=== PATIENT | female | born 1955 | race Caucasian/White ===

== ENCOUNTER 2021-03-24 20:37 | Inpatient (IN) | payer OTHER ==
[~2021-03-24] VITALS: Ht 165.1 cm; Wt 40.8 kg
[2021-03-24 20:43] VITALS: BP 100/54
[2021-03-24] MEDS ORDERED: MUCINEX600 MG PO (20:46)
[2021-03-24] MEDS ORDERED: VITAMIN D325 MC3 PO (20:47)
[2021-03-24] MEDS ORDERED: TELMISARTAN-HC1 EACH PO (20:48)
[2021-03-24] MEDS ORDERED: IMODIUM A-D2 MG PO (20:48)
[2021-03-24] MEDS ORDERED: LIPITOR40 MG PO (20:48)
[2021-03-24] MEDS ORDERED: GRALISE600 MG PO (20:48)
[2021-03-24] MEDS ORDERED: MORPHINE SULFAT15 MG PO (20:49)
[2021-03-24] MEDS ORDERED: PERCOCET 10-321 EAC1 PO (20:49)
[2021-03-24] MEDS ORDERED: LEVOTHYROXINE75 MC1 PO (20:49)
[2021-03-24] MEDS ORDERED: PROTONIX40 M2 PO (20:50)
[2021-03-24] MEDS ORDERED: ALENDRONATE SOD35 MG PO (20:50)
[2021-03-24] MEDS ORDERED: LASIX 20 MG TAB20 MG PO (20:50)
[2021-03-24 21:37] LABS: BE 6.9 mmol/L (-2 to +3); pH 7.403 (7.340-7.450)
[2021-03-24 21:40] LABS: PCO2 54.6 mmHg (35.0-45.0); PO2 47.3 mmHg (75.0-100.0)
[2021-03-24 21:40] LABS: ABSOLUTE EOSINOPHILS 0.1 thou/uL (0.0-0.7); ABSOLUTE MONOCYTES 1.3 thou/uL (0.0-1.2); ABSOLUTE NEUTROPHILS 7.8 thou/uL (1.6-8.1); BASOPHILS 0.3 %; EOSINOPHILS 0.7 %; HEMATOCRIT 38.9 % (37.0-47.0); HEMOGLOBIN 12.9 gm/dL (12.0-15.0); LYMPHOCYTES 10.1 %; MCH 28.7 pg (26.0-34.0); MCHC 33.1 g/dL (28.0-37.0); MCV 86.7 fL (80.0-100.0); MONOCYTES 12.4 %; MPV 6.7 fl. (7.2-11.1); NUCLEATED RBCS 0 /100WBC; PLATELET COUNT* 384 thou/uL (150-400); POLYS 76.5 %; RBC 4.48 mil/uL (4.20-5.00); RDW-CV 13.5 % (10.5-14.5); WBC 10.2 thou/uL (4.0-11.0)
[2021-03-24 21:57] LABS: CALCIUM 8.1 mg/dL (8.5-10.1); CREATININE 1.4 mg/dL (0.6-1.3); POTASSIUM 4.1 mmol/L (3.5-5.1)
[2021-03-24 22:02] LABS: ALBUMIN 2.5 g/dL (3.4-5.0); TOTAL BILIRUBIN 0.3 mg/dL (<0.1-1.0); TOTAL PROTEIN 6.8 g/dL (6.4-8.2)
[2021-03-24 23:34] LABS: INR 1.1; PROTIME 11.7 Seconds (9.20-11.50)
[2021-03-25] VITALS (72 sets, daily range): BP systolic 73–131; BP diastolic 40–93
[2021-03-25 01:35] LABS: BE 4.1 mmol/L (-2 to +3); PO2 78.1 mmHg (75.0-100.0); pH 7.366 (7.340-7.450)
[2021-03-25 01:39] LABS: PCO2 54.7 mmHg (35.0-45.0)
--- NOTE | 2021-03-25 07:59 | NUR ---
RECEIVED REPORT AND ASSUMED CARE AT 0515. PT TRANSPORTED FROM ED TO ICU ROOM 5. ADMISSION COMPLETED CHARTED. ORIENTATED TO ROOM AND FALL POLICY. DISCUSSED PLAN OF CARE. BED LOCKEDIN LOWEST POSITION,CALL LIGHT WITHIN REACH. ROUNDING COMPLETED AND ALL NEEDS MET
--- NOTE | 2021-03-25 13:33 | EKG ---
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 03/25/21 1332 11 11 Geraldo Clifford MD, [facility] /EPI
[2021-03-26] VITALS (19 sets, daily range): BP systolic 88–162; BP diastolic 46–85
--- NOTE | 2021-03-26 05:14 | NUR ---
ASSUMED PATIENT CARE AT 1900. ASSESSMENTS COMPLETED CHARTED. CARDIAC MONITORING IN PLACE. NO BM DURING SHIFT. HOURLY ROUNDING IN PLACE FOR PATIENT SAFETY. FALL PRECAUTIONS IN PLACE FOR PATIENT SAFETY. BED LOCKED AND IN LOWEST POSITION. CLWR.
[2021-03-26 05:24] LABS: CHOLESTEROL 94 mg/dL (<200); TC:HDL 2.4 Ratio (Not establshd); TRIGLYCERIDE 44 mg/dL (<150); VLDL 9 mg/dL (<40)
[2021-03-26 05:27] LABS: HDL CHOLESTEROL 40 mg/dL (>40); LDL CHOLESTEROL 46 mg/dL (<100); TROPONIN-I LEVEL 0.12 ng/mL (<0.06)
[2021-03-26 05:34] LABS: SERUM ASSESSMENT Clear
--- NOTE | 2021-03-26 10:22 | 2DMMODE ---
[place] [address] 2 D/M-MODE ECHOCARDIOGRAM Name: JESSICA HIGGINS Room: [address] IN [facility]#: [id number] Admission: 03/25/21 Attend Phys: Joaquin Ambrosio, Discharge: Date of : 57 Date of Service: 03/26/21 1021 Report #: [id number] THIS REPORT FOR: cc: FAM - No family physician/PCP FAM - No family physician/PCP Geraldo Clifford MD [facility] ~ APPROVED REPORT Study performed: 03/26/2021 08:35:45 EXAM: Comprehensive 2D, Doppler, and color-flow Echocardiogram Patient Location: In-Patient Room #: 005 BSA: 1.41 HR: 60 bpm BP: 116/56 mmHg Other Information Study Quality: Technically Limited Technically limited study due to lung disease, uncooperative patient. Indications Dyspnea 2D Dimensions IVSd: 10.62 (7-11mm) LVOT Diam: 19.93 (18-24mm) LVDd: 30.19 mm PWd: 9.63 (7-11mm) Ascending Ao: 28.71 (22-36mm) LVDs: 22.83 (25-40mm) Aortic Root: 29.24 mm Pulmonary Valve PV Peak Vamshi.: 0.77 m/s PV Peak Gr.: 2.37 mmHg Left Ventricle The left ventricle is normal size. There is normal LV segmental wall motion. There is normal left ventricular wall thickness. Left ventricular systolic function is normal. The left ventricular ejection fraction is within the normal range. LVEF is 55-60%. This study is not technically sufficient to allow evaluation of the [place] [address] 2 D/M-MODE ECHOCARDIOGRAM Name: JESSICA HIGGINS Room: [address] IN ..#: [id number] Admission: 03/25/21 Attend Phys: Joaquin Ambrosio, Discharge: Date of : 57 Date of Service: 03/26/21 1021 Report #: [id number] Right Ventricle The right ventricle is normal size. The right ventricular systolic function is normal. Atria The left atrium size is normal. The right atrium size is normal. Aortic Valve The aortic valve is not well visualized. No aortic regurgitation is present. There is no aortic valvular stenosis. Mitral Valve The mitral valve is normal in structure. Mild mitral annular calcification. There is no mitral valve regurgitation noted. No evidence of mitral valve stenosis. Tricuspid Valve The tricuspid valve is normal in structure. There is no tricuspid valve regurgitation noted. Pulmonic Valve Pulmonic valve is not well visualized. There is no pulmonic valvular regurgitation. Great Vessels The aortic root is normal in size. IVC is not well visualized. Pericardium There is no pericardial effusion. <Conclusion> LVEF is 55-60%. <ELECTRONICALLY SIGNED> By: Geraldo Clifford MD, [facility] 03/26/21 1021 1021 1021 Geraldo Clifford MD, FACC /INF
--- NOTE | 2021-03-26 13:02 | NUR ---
pt left ama at 1205 sign formed and placed in chart this jingle writer explained why pt should stay if she feels worse or has increased s/s to come back to hospital gita cath deaccessed and iv removed before leaving transported via wheelchair by nursing staff with pt, pt daughter pt was able to stay on ra with exertion and walk around the room with no issue
--- NOTE | 2021-03-26 13:37 | EKG ---
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1955 Requested By: Bianca Buckner Order Number: [id number] MD: Geraldo Clifford Measurements Intervals [place] Rate: 78 P: 33 UT: 154 QRS: 23 QRSD: 94 T: 30 QT: 415 QTc: 473 Interpretive Statements Sinus rhythm Low voltage, precordial leads Compared to ECG 03/24/2021 22:12:38 Sinus tachycardia no longer present Atrial premature complex(es) no longer present Electronically Signed On 03-26-2021 13:37:39 CDT by Geraldo Clifford [email or web address] <ELECTRONICALLY SIGNED> By: Geraldo Clifford MD, FAC 03/26/21 1337 0 0 Geraldo Clifford MD, [facility] /EPI
--- NOTE | 2021-03-26 15:18 | EKG ---
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 03/26/21 1518 0853 0853 Geraldo Clifford MD, [facility] /EPI
--- NOTE | 2021-03-26 17:12 | CON ---
[address] [address] CONSULTATION Name: JESSICA HIGGINS Room: [address] IN .R.#: [id number] Admission: 03/25/21 Attend Phys: Joaquin Ambrosio MD Discharge: 03/26/21 Date of : 57 Report #: [id number] THIS REPORT FOR: cc: SHAHLA - No family physician/PCP FAM - No family physician/PCP Geraldo Clifford MD [facility] ~ DATE OF CONSULTATION: 03/25/2021 CARDIOLOGY CONSULTATION HISTORY OF PRESENT ILLNESS: The patient is a 65-year-old single white female who I was asked to see in the hospital after she is noted to have an elevated troponin. The patient has a long and extensive past medical history. Unfortunately, she has never been here to [place] in the past. She notes she was diagnosed with lung cancer back in 2013 that was nonresectable. She was treated with chemotherapy and immunotherapy. Last year, she was diagnosed with breast cancer. She underwent lumpectomy followed by chemotherapy and she continues to receive immunotherapy. Apparently before her breast cancer surgery, she had a nuclear pharmacologic stress test at [place] that showed no evidence of ischemia. She denies a history of heart disease. She stays very active at this time working in the yard and caring of her grandkids. However, recently she has had increasing shortness of breath. She has been coughing yellow phlegm. She takes Lasix for occasional edema. Because of the shortness of breath, family members brought her to the hospital yesterday and she was admitted for further evaluation and treatment. She denies a history of exertional chest tightness, palpitations, syncope, leg pain. PAST MEDICAL HISTORY: She has a history of hypertension, hyperlipidemia. She has had previous nasal surgery, . CURRENT MEDICATIONS: Include Micardis HCT and Lipitor. ALLERGIES: SHE HAS INTOLERANCE TO PLAQUENIL AND CODEINE. FAMILY HISTORY: Her mother has heart disease. SOCIAL HISTORY: She is , lives here in [place]. Smokes a pack of cigarettes a day. Rarely drinks alcohol. REVIEW OF SYSTEMS: No history of stroke, liver disease. No history of kidney disease. She has eczema. No history of psychiatric illness. PHYSICAL EXAMINATION: GENERAL: Revealed an elderly, frail-appearing female who appeared in no distress, [place] [address] CONSULTATION Name: JESSICA HIGGINS Ilda Room: [address]#: [id number] Admission: 03/25/21 Attend Phys: Joaquin Ambrosio MD Discharge: 03/26/21 Date of : 57 Report #: [id number] VITAL SIGNS: Her blood pressure is only 80/60 with a pulse of 70. She is currently on IV pressors. She is afebrile. HEENT: She was anicteric. Conjunctivae are pink. Mucous membranes moist. NECK: Veins not appear distended. No carotid bruits are heard. CHEST: Revealed decreased breath sounds bilaterally. HEART: Regular rate and rhythm, no significant murmur. ABDOMEN: Soft. EXTREMITIES: Had no edema. Dorsalis pedis pulse could not be palpated. SKIN: Cool and dry. NEUROLOGIC: Nonfocal. IMAGING AND LABORATORY DATA: EKG last night showed a sinus rhythm, low voltage. There is no significant ST or T-wave change noted. On her workup in the Emergency Room last night, she had a portable chest x-ray that showed normal heart size, elevated right hemidiaphragm, occasional scarring was noted. On her lab work, sodium 134, creatinine 1.4. Her albumin is 2.5. Troponin was 0.35 on admission, today it is 0.27. Her white blood cell count 10.2, hemoglobin 12.9. Her COVID antigen stat test was negative. IMPRESSION AND RECOMMENDATIONS: 1. Borderline elevation of troponin. No evidence of acute myocardial infarction. No evidence of angina, ST segment changes. No further cardiac workup at this time. The patient apparently had a nuclear stress test last year at [place]. I would attempt to obtain those records. 2. Bronchitis. 3. Tobacco abuse. 4. History of lung cancer. 5. History of breast cancer. Currently receiving immunotherapy. 6. Hypertension. Blood pressure noted to be low. I would hold Micardis and HCTZ at this time. 7. Hyperlipidemia. The patient is on a statin drug. <ELECTRONICALLY SIGNED> By: Geraldo Clifford MD, [facility] 03/26/21 1712 0823 0930Davihermilo Clifford MD, FACC /nt
== END 2021-03-26 12:05 | disposition left against medical advice (07) | DRG 190 ==
LOC: M.ERS 20:37 → M.TBA-ER 03-25 00:10 → M.ICU 03-25 00:10
PROVIDERS: Internal Medicine Cardiovascular Disease; Personal Emergency Response Attendant; ADMIT Internal Medicine; ATTEND Internal Medicine
DX: J44.1 Chronic obstructive pulmonary disease with (acute) exacerbation (principal); J96.01 Acute respiratory failure with hypoxia; I21.A1 Myocardial infarction type 2; D84.9 Immunodeficiency, unspecified; F17.210 Nicotine dependence, cigarettes, uncomplicated; G89.29 Other chronic pain; E03.9 Hypothyroidism, unspecified; I95.9 Hypotension, unspecified; I10 Essential (primary) hypertension; E78.5 Hyperlipidemia, unspecified; Z20.822 Contact with and (suspected) exposure to COVID-19; Z53.21 Procedure and treatment not carried out due to patient leaving prior to being seen by health care provider; Z79.899 Other long term (current) drug therapy; Z85.3 Personal history of malignant neoplasm of breast; Z88.5 Allergy status to narcotic agent; Z85.118 Personal history of other malignant neoplasm of bronchus and lung; Z92.21 Personal history of antineoplastic chemotherapy; Z92.3 Personal history of irradiation; Z98.891 History of uterine scar from previous surgery